=== PATIENT | female | born 1950 | race Caucasian/White ===

== ENCOUNTER 2016-12-09 05:54 | Day surgery (SDC) | payer MEDICARE ==
[~2016-12-09] VITALS: Ht 162.6 cm; Wt 86.8 kg
[2016-12-09] VITALS (13 sets, daily range): BP systolic 99–144; BP diastolic 6–76; PULSE 70–103; RESP 14–17; O2SAT 95–98
[~2016-12-09 05:54] MED LIST: CeFAZolin Inj 2 GM in IV Premix 1 EACH IV ONE; Dextrose 10% 250 ML IV SCH; Lactated Ringer's 1,000 ML IV ONE; PREC VG; Phenazopyridine 97.5 mg Tablet PO ONE; THYROID PO
[2016-12-09] MEDS ORDERED: Dexamethasone 4 mg/mL Inj ONE (05:55)
[2016-12-09] MEDS ORDERED: Propofol 10,000 mCg/mL 20 mL Inj ONE (05:55)
[2016-12-09] MEDS ORDERED: Phenylephrine/NS 100 mCg/mL 10 mL Syringe IVPUSH ONE (05:55)
[2016-12-09] MEDS ORDERED: fentaNYL-PF 50 mCg/mL 2 mL Inj ONE (05:55)
[2016-12-09] MEDS ORDERED: Ondansetron 2 mg/mL 2 mL Inj ONE (05:55)
[2016-12-09] MEDS ORDERED: Rocuronium 10 mg/mL 5 mL Inj ONE (05:55)
[2016-12-09] MEDS ORDERED: Morphine PF 1 mg/mL 10 mL Inj ONE (05:55)
[2016-12-09] MEDS ORDERED: Phenazopyridine 97.5 mg Tablet ONE (06:11)
[2016-12-09] MEDS ORDERED: CeFAZolin 2 Gm/50 mL D5W Duplex Bag IV ONE (06:12)
--- NOTE | 2016-12-09 07:25 | PCM.HPANE ---
Patient Data Date of Service: Dec 09, 2016 Surgeon Admitting Provider: Attending Provider:Anand East MD Primary Care Physician:Donald Jama MD Other Provider:Burton Encinas Anesthesia Reason for Visit Uterovaginal Prolapse,Rectocele,Stress Incontinenc Ht/WT & BMI Height (Feet): 5 Height (Inches): 4 Weight (Kilograms): 86.8 Body Mass Index 32.00 Allergies Coded Allergies: NSAIDS (Non-Steroidal Anti-Inflamma (Verified Allergy, Severe, Increase heart rate, 12/08/16) Sulfa (Sulfonamide Antibiotics) (Verified Allergy, Severe, Anaphylaxis, ) epinephrine (Verified Allergy, Severe, Panic attack, 12/08/16) Past Anesthesia History Anesthesia History: Positive for:: Anesthesia Reactions (GENERAL - HYPOTENSION , SPINAL - NO PAIN RELIEF), Denies:: Abnormal Airway, Difficult Intubation, Fam Anesthesia Reaction, Fam Malignant Hypertherm, Malignant Hyperthermia Diabetes History Hx Diabetes?: No MRSA MRSA: No Medications Hypertension Medication: No Home Meds Incl Beta Marco: No Reported Medications [Amour Thryoid] No Conflict [id number] Mg PO DAILY 12/08/16 Estrogens Conjugated (Premarin)1 Gm Vagcream0.625 Mg VG DAILY #1 TUBE Ref 0 12/08/16 History History of ENT Problems?: Yes HEENT History: Positive for:: Sinus Problem (chronic sinusitis) Denies:: Abnormal Airway Cataracts Difficult Intubation Dysphagia Glaucoma Hearing Problem Denture Type: None Teeth Condition: Within Normal Limits Hx of Heart Problems?: No Cardiovascular History: Denies:: Atrial Fibrillation Hypertension Irregular Heartbeat Valvular Heart Disease Hx of Respiratory Problem?: Yes (nothing chronic or currently present) Respiratory History: Positive for:: Hemoptysis (with pneumonia 40 yrs) Pneumonia (40 yrs ago) Denies:: Pulmonary Embolism Tuberculosis Use of C-PAP Machine Use of Inhalers / NEBS Hx Neurologic Problems?: Yes Neurological History: Positive for:: Dizziness (vertigo on occassion) Denies:: Alzheimer's Disease CVA Dementia Headaches Parkinson's Disease Seizures TIA Hx of GI Problems?: No Gastrointestinal History: Denies:: Gastroesphageal Reflux Heartburn Hx of Problems?: No Genitourinary History: Denies:: Urinary Tract Infection Female Hx: Denies:: Currently Problems with Breasts? Skin History: Denies:: History Skin Disorders? (scraches from blackberry's) Hx Musculoskeletal Problems?: Yes Musculoskeletal History: Positive for:: Back Injury (LOW BACK PAIN - ? BULGING DISCS X 2 YRS) Musculoskeletal Trauma (both arms fx) Denies:: Degenerative Joint Joint Replacement Osteoarthritis Rheumatoid Arthritis Systemic Lupus Hx of Psycho/Social Problems?: No Hx Surgeries?: Yes (KIM - 8 YRS AGO, BLADDER TACKED - 7YRS AGO,) Other History: Positive for:: Cancer (facial melinoma removed) Hospitalization Thyroid Disease ([place] Thyroid) History Blood Transfusions: Positive for:: Accept Blood Products? Denies:: Blood Transfusions Hx Diabetes: No Hx Alcohol Use: NoHx Substance Use: NoHave You Smoked inLast 12 mo: No Stop/Bang S-Snoring: Do You Snore Loudly: No T-Tired: feel tired, fatigued: No O-Obsered: Observed not breath: No P-Blood Pressure: treated: No B- Body Mass Index > 35 kg/m2: No A- Age over 50: Yes N- Neck Large Circumference: No G- Gender Male: No MARIA ISABEL Total Score: 1 MARIA ISABEL Risk Assessment: Low Risk, <3 Yes Risk Assessment Category Category 1A: Patient has history of documented sleep apnea, and HAS NOT received any narcotic, sedative or anesthesia administration during this stay. Category 1B: Patient has history of documented sleep apnea, and HAS received any narcotic , sedative or anesthesia administration during this stay Category 2: Patient has SUSPECTED Obstructive Sleep Apnea, and HAS received any narcotic , sedative or anesthesia administration during this stay. Category 3: Patient has SUSPECTED Obstructive Sleep Apnea and HAS NOT received narcotic, sedative or anesthesia administration during this stay. Category 4: Outpatient in Procedural Areas with known sleep apnea or who screen positive for High Risk via the STOP/BANG questionnaire. Exam Exam Vital Signs Vital Signs Date Time Temp Pulse Resp B/P Pulse Ox O2 Delivery O2 Flow Rate FiO2 12/09/16 06:20 36.7 76 16 144/76 95 Room Air General Appearance: Alert, Oriented X3, Cooperative, No Acute Distress HEENT/AIRWAY: MP 2, Neck Movement (FROM, tmd 3 fb), Mouth Opening (small, narrow) Lungs: Clear to Auscultation, Normal Air Movement Heart: Exam Unremarkable, Regular Rate/Rhythm, No Murmurs/Rubs/Gallops Meds/Labs/Diagnostics Admission Meds Current Medications Phenazopyridine HCl 2 tab 2 tab 01 ONCE PO Last administered on 12/09/16 07: 00; Start 12/09/16 at 01:00; Stop 12/09/16 at 01:01; Status DC Lactated Ringer's (Lr) 1,000 ml @ 10 mls/hr Q24H ONCE IV Last administered on 12/09/16 06:05; Start 12/08/16 at 07:31; Stop 12/09/16 at 07:30 Labs PLT 215 on 12/02/16, no e/o coagulopathy Plan Impression Patient chart reviewed, patient interviewed and anesthestic plan with risks, benefits, and alternatives discussed, and informed consent obtained. NPO per Anesth. Guidelines: Yes ASA Physical Status: ASA2 Mod Systemic Disease Anesthetic Plan: GA, Regional Block (intrathecal morphine for postop analgesia) Bene/Risks/Altern/Consents: Yes HP Complete Prior to Induction: Yes Los Cerna MD Dec 09, 2016 07:25
[2016-12-09] MEDS ORDERED: Lactated Ringer's 500 ML IV PRN (08:18)
[2016-12-09] MEDS ORDERED: EPHEDrine Sulfate 50 mg/mL Inj IM PRN (08:20)
[2016-12-09] MEDS ORDERED: MetoCLOpramide 5 mg/mL 2 mL Inj IVPUSH PRN ×2 (08:20→12:15)
[2016-12-09] MEDS ORDERED: Phenylephrine 10,000 mCg/mL Inj IVPUSH PRN (08:20)
[2016-12-09] MEDS ORDERED: hydrALAZINE 20 mg/mL Inj IVPUSH PRN (08:20)
[2016-12-09] MEDS ORDERED: Ondansetron 2 mg/mL 2 mL Inj IVPUSH PRN ×2 (08:20→12:15)
[2016-12-09] MEDS ORDERED: fentaNYL-PF 50 mCg/mL 2 mL Inj IVPUSH PRN (08:20)
[2016-12-09] MEDS ORDERED: HYDROmorphone 1 mg/mL Inj IVPUSH PRN (08:20)
[2016-12-09] MEDS ORDERED: Labetalol 5 mg/mL 20 mL Inj IV PRN (08:20)
[2016-12-09] MEDS ORDERED: EPHEDrine Sulfate 50 mg/mL Inj IVPUSH PRN (08:20)
[2016-12-09] MEDS ORDERED: Atropine 0.4 mg/mL Inj IVPUSH PRN (08:20)
[2016-12-09] MEDS ORDERED: Lidocaine 1%-Epi 1:100,000 20 mL Inj INJ ONE ×2 (08:43→10:10)
[2016-12-09] MEDS ORDERED: Gentamicin 40 mg/mL 2 mL Inj IRRIGATION ONE ×2 (08:43→10:11)
[2016-12-09] MEDS ORDERED: Sodium Chloride Bacteriostatic 30 mL Inj INJ ONE ×2 (08:43→10:11)
[2016-12-09] MEDS: Lactated Ringer's 1,000 ML IV SCH ×3 (11:18→17:32)
[2016-12-09] MEDS ORDERED: Estrogens Conjugated 30 Gm Vaginal Cream VAGINAL ONE (11:21)
[2016-12-09] MEDS ORDERED: oxyCODONE-Acetamin 5-325 mg Tablet PO PRN (12:15)
[2016-12-09] MEDS ORDERED: hydrOXYzine Inj 50 MG/1 mL SDV IM PRN (12:15)
[2016-12-09] MEDS: Acetaminophen IV 1,000 MG in IV Premix 1 EACH IV SCH ×3 (12:15→23:14)
--- NOTE | 2016-12-09 14:04 | PCM.ANEP1 ---
Post Anesthesia PACU Phase 1 Assessment Date of Service: Dec 09, 2016 Vital Signs Vital Signs Date Time Temp Pulse Resp B/P Pulse Ox O2 Delivery O2 Flow Rate FiO2 12/09/16 13:33 Supplement Oxygen 12/09/16 13:32 36.7 94 16 132/76 96 Nasal Cannula 2.00 12/09/16 13:00 95 16 124/59 95 Nasal Cannula 12/09/16 12:45 98 17 127/62 95 Nasal Cannula 12/09/16 12:30 103 15 121/6 96 Nasal Cannula 3 12/09/16 12:20 99 17 120/62 95 Nasal Cannula 3 12/09/16 12:05 82 15 115/58 96 Nasal Cannula 3 12/09/16 12:01 17 96 12/09/16 12:00 90 16 99/52 96 Nasal Cannula 3 12/09/16 11:55 83 14 108/58 96 Nasal Cannula 3 12/09/16 11:50 37.1 80 16 123/55 95 Nasal Cannula 3 12/09/16 06:20 36.7 76 16 144/76 95 Room Air Anesthetic Administered: GA Level of Alertness: Sleepy, easy to arouse CAMACHO's with Equal Strength: Yes Pain: Yes Pain Scale Score: 1 Nausea or Vomiting: Yes (improved with treatment) CV Function & Hydration Stable: Yes Airway Device: none Oxygen Delivery: Nasal Cannula Lungs: Clear to Auscultation, Normal Air Movement Dermatome Level: Full Sensation PACU Phase 2 Assessment Complications: No Follow up Care: N/A Patient Instructions Provided: N/A Los Cerna MD Dec 09, 2016 14:04
[2016-12-09] MEDS ORDERED: hydrOXYzine Inj 25 MG/1 mL SDV IM PRN (14:45)
--- NOTE | 2016-12-09 17:36 | NUR ---
Post Op Pt arrived to OSC unit, from PACU, via gurney, at 1310. A&O - groggy/sleepy but arousable and answering questions appropriately. CAMACHO - gen weakness/drift&fall within 10seconds. VSS - on 2L NC, CPOx with sats mid90s, stating nausea with movement on gurney from PACU to OSC, Najera patent, Bilateral bandaids/steristrips CDI, Peripad with half dollar size sanguineous drainage noted, Pt oriented to room, IV patent and infusing LR, stating achey but tolerable - instructed to call when starting to increase in pain - pt understanding, Pt watched orientation video. Care continues.
[2016-12-09 20:04] LABS: APPEARANCE,URINE HAZY (CLEAR,HAZY); COLOR,URINE ORANGE (YELLOW)
--- NOTE | 2016-12-10 00:07 | PCM.SURGOP ---
Surgical Operative Report Date of Service: Dec 09, 2016 Pre Operative Diagnosis 1. POPQ stage 2 apical uterine prolapse 2. POPQ stage 3 posterior vaginal prolapse 3. Recurrent Stress incontinence in female, found on urodynamics N39.3 (625.6): Previous rectus fascia sling 1996 Post Operative Diagnosis 1. POPQ Stage 2 Uterine prolapse 2. POPQ Stage 3 Rectocele and deficient rectovaginal fascia N81.6 (618.04): 3. Recurrent Stress incontinence in female, found on urodynamics N39.3 (625.6): Previous rectus fascia sling 1996 Procedure: 1. vaginal hysterectomy with bilateral salpingectomy, 2. posterior repair with Xenform biologic graft augmentation, 3. high uterosacral ligament vaginal vault suspension, and enterocele repair. 4, mid-urethral sling, TVT-Obturator and cystoscopy Surgeon and Assistant Kitchen Manager: Surgeon: Anand East MD Assistants: Tae Poe MD Indication for Procedure Her assessment to date includes: 1. Vaginal atrophy N95.2 (627.3): 2. Uterovaginal prolapse, incomplete N81.2 (618.2): 3. Rectocele N81.6 (618.04): 4. Recurrent Stress incontinence in female, found on urodynamics N39.3 (625.6): Previous rectus fascia sling 1996 The patient is a candidate for surgical prolapse management in the form of vaginal hysterectomy with Bilateral Salpingectomy, posterior repair with possible biologic graft augmentation, high uterosacral ligament vaginal vault suspension, and enterocele repair. For recurrent stress incontinence after a rectus fascia sling, I would implant a mid-urethral sling such as a TVT-O sling, which is positioned at the mid-urethra rather than at the bladder neck. The transobturator approach would bypass the likely scarring that is present in the retropubic space. She would like to keep the ovaries if they appeared normal; I did inform her there is a small risk in the general female population of ovarian cancer and that her ovaries are no longer producing estrogen. There is no strong fhx of ovarian/breast cancer. The patient signed the consent form. She agreed with the risks, benefits, and alternatives to surgery. The risks included but not limited to recurrence or persistence of prolapse, recurrence of persistence of incontinence, development of voiding dysfunction, development of urinary urgency, urgency incontinence, frequency, and need for intermittent self-catheterization or prolonged indwelling catheterization, injury to other organs including bladder, bowel, nerves or blood vessels. Need for blood transfusion, need for temporary colostomy or urinary stenting. Development of vaginal scarring, dyspareunia, defecatory dysfunction, recurring pain, hematoma formation, urinary tract infection, cellulitis, necrotizing fascitis, and medical risks including myocardial infarction, stroke or VTE. She also understood the FDA warnings associated with the use of vaginal mesh (dysparunia, vaginal erosion, erosion into bowel/bladder/urethra, requiring further surgery to correct these complications). The patient understood the risks and benefits and consented to surgery. Findings: see dictation Procedure Details SURGICAL TECHNIQUE: The patient was brought to the operating room. She was placed under general anesthesia. She was positioned with legs in Yellowfin stirrups. She was prepped and draped in the normal fashion for vaginal surgery. She was given a dose of IV ancef intraoperatively. She received 200 mg pyridium orally 30 min prior to surgery. 1. Vaginal Hysterectomy and bilateral salpingectomy: Lidocaine 0.5% with 1:200,000 of epinephrine was infiltrated pericervically. A pericervical incision was made with cautery. Anteriorly, the bladder was sharply dissected off the cervix. Posteriorly, the cul de sac was entered with sharp dissection. The bowels were packed with a mini-laparotomy sponge. The uterosacral ligaments were bilaterally clamped, divided and then tied in a transfixion fashion with 0- vicryl suture. Anteriorly, the Uterovesical peritoneum was entered with sharp dissection and the bladder was retracted upward with a right-angle retractor. The uterine vessels were then coagulated, and ligated using the Ligasure Impact System. The uterine body was delivered posteriorly. The utero-ovarian ligaments were clamped bilaterally, coagulated, ligated and then tied using 0-Vicryl suture. The tubes and ovaries appeared normal. After extensive counselling in the preop phase, she decided she would like to keep the ovaries if they looked normal. There was no strong family hx of ovarian/breast cancer. She however agreed to have a bilateral salpingectomy. The tubes were clamped at their base, coagulated with Ligasure and excised. The base was tied with 0- vicryl suture. The uterus/cervix, and tubes were sent to pathology. It was noted that the pedicles were hemostatic. 2-0 vicryl suture was used to achieve hemostasis along the cuff. 2. High uterosacral ligament vaginal vault suspension, cystoscopy and enterocele repair: Mini laparotomy sponges were packed to retract the bowel upwards. A pair of Allis clamps were placed along the intraperitoneal portions of the vagina at the 5 and 7 o'clock positions. Tension along these Allis clamps allowed for identification of the uterosacral ligaments bilaterally. A pair of 0 Vicryl sutures were passed around the uterosacral ligaments of the level of the ischial spine bilaterally, totalling 4. Cystoscopy was performed. Tension was applied along the vault sutures and brisk spillage of pyridium-stained urine was noted briskly effluxing from both ureteric orifices. Next four 3-0 Prolene sutures were placed transversely through the cul-de-sac peritoneum. This was performed while using a gloved finger in the rectum as to avoid penetrating the underlying rectal mucosa. Tying these sutures obliterated the POPQ Stage 3 enterocele. 3. Posterior colpoperinerorrhaphy with Xenform graft augmentation: Lidocaine 0.5% with 1/789819 epinephrine was infiltrated along the anterior vaginal wall mucosa. EUA revealed the presence of a POPQ stage 3 posterior vaginal prolapse corresponding to a rectocele. Lidocaine 0.5% with 1:50,000 of epinephrine was infiltrated along the perineum and posterior vaginal wall mucosa. A small midline vertical incision was made through the perineum. A mild wedge of perineum needed to be excised. A Midline vertical incision was made through the posterior vagina to the level of the apex a scalpel. The vaginal mucosa was dissected off the underlying rectovaginal tissues. It was noted the fascial tissues were thin and deficient especially at the area of the apex and was composed mainly of adipose tissue. The rectocele was plicated in two layers using 2-0 Vicryl suture in an interrupted fashion. A rectangular piece of Xenform graft was then sutured above the plicated tissue. The apical portion of this graft was secured to the apex near the enterocele repair. Laterally and distally the graft was secured using 2-0 Vicryl suture in interrupted fashion. A moderate amount of excess posterior vaginal mucosa was needed to be excised. The vagina was then reapproximated using 3-0 Vicryl suture in a running locked fashion. Perineum was reapproximated using 2-0 Vicryl suture in an interrupted fashion. The skin was reapproximated using 3-0 Vicryl suture in a subcuticular fashion. The vault suspension sutures were then passed through the planned apex of the vagina. Two were placed through the anterior apex and the other two, through the posterior apex. The vagina was then reapproximated using 3-0 Vicryl suture in a running-locked fashion. The high uterosacral ligament vaginal vault suspension sutures were tied and this elevated the apex of the vagina high up into the hollow of the sacrum. 4. TVT-Obturator sling and cystoscopy. Lidocaine 0.5% with 1/928336 epinephrine was infiltrated along the anterior vaginal wall mucosa at the level of the mid urethra. Midline vertical incision was made at that level, 2 periurethral tunnels were created with Metzenbaum scissors. Two stab incisions were created at the skin at the groin at a level 2 cm superior to the external urethral meatus and 2 cm lateral to the fold created between the vulva and thigh. De La Fuente catheter had already been inserted. A butterfly guide was inserted into the right periurethral tunnel, a curved helical needle was inserted on top of the guide and rotated out to the ipsilateral skin incision. The same procedure was performed on the contralateral side. Next the De La Fuente catheter was removed. There was no inadvertent penetration of the sling through the vagina, urethra or bladder. In addition, the ureteric orifices were noted bilaterally to be functional by the brisk spillage of pyridium-stained urine. The bladder appeared normal. The plastic sheaths of the sling were removed. The bladder was filled with sterile water (to a total bladder volume of 300 ml). Using the Crede maneuver, sling tension was appropriately adjusted. Also a large right angle clamp was allowed to easily pass behind the sling so that the sling was placed in a tension-free manner. The sling ends were cut at the level of the skin. The skin was reapproximated using Mastisol, Steri-Strips and band-aids. The vagina was reapproximated using 3-0 Vicryl suture in a running fashion The vagina was packed with Premarin-lubricated packing. An indwelling 16 F de la fuente catheter was connected to straight drainage. The patient's hips were periodically deflexed during the case. There were no complications. The EBL was 150 ml. All sponges and instruments were accounted for. She was taken to the recovery room in stable condition. Complications There were no periprocedural complications identified. Surgical Specimen Removed: Yes Specimen sent to Pathology: Yes Surgical Specimen description: uterus, cervix, tubes x 2 Anesthetic Plan: GA, Regional Block (intrathecal morphine for postop analgesia) Grafts, Implants: Grafts-See Implant Record, Implants-See Implant Record Output, Estimated Blood Loss: 150 (ml EBL) Blood Administration during kumar: No Drains: None Catheters: 3 Way Irrigation Post Operative Plan overnight observation in bed as outpatient as she requires a voiding trial in the am Attending Statement I performed the entire procedure myself copies to: Tae Poe MD; Anand East MD; Ayesha Jama MD, William Andre Z MD Dec 10, 2016 00:07
[2016-12-10 00:23] VITALS: BP 110/68; PULSE 65; RESP 16; O2SAT 96
[2016-12-10] MEDS: Lactated Ringer's 1,000 ML IV SCH ×3 (02:18→13:33)
--- NOTE | 2016-12-10 03:49 | NUR ---
ACTIVITY: Pt. resting in bed during initial assessment, denies pain. Stated she had nausea but it is resolved now. Drinking small amts of fluid, ice chips. Winnie care done. Moderate amount of bloody vaginal discharge in her pad. Najera catheter with cloudy and orange colored urine. Declined narcotics for pain. Given one dose of IV Tylenol for pain rated 5/10, effective. Pt. resting comfortable in bed. Educated regarding voiding trial in am. On going care.
[2016-12-10 04:34] VITALS: BP 110/66; PULSE 68; RESP 16; O2SAT 98
[2016-12-10] MEDS: Acetaminophen IV 1,000 MG in IV Premix 1 EACH IV SCH ×2 (04:53→13:39)
[2016-12-10 05:26] LABS: BASOPHILS % (AUTO) 0 % (0-3); EOSINOPHILS % (AUTO) 0.1 % (0-5); MONOCYTES % (AUTO) 11.5 % (4-12); Mean Corpuscular Hemoglobin 30.7 pg (27.0-35.0); Mean Corpuscular Volume 89.7 fL (81-100); NEUTROPHILS % (AUTO) 67.5 % (40-74); Platelet Count 166 bil/L (150-400)
[2016-12-10] MEDS ORDERED: [UNRECOGNIZED DRUG - OTHER] PO SCH (08:30)
[2016-12-10] MEDS ORDERED: Senna-Docusate 8.6-50 mg Tablet PO SCH (08:30)
[2016-12-10] MEDS: Heparin 5,000 Unit/mL Inj SUBQ SCH ×2 (08:39→16:03)
[2016-12-10] MEDS ORDERED: HYDROcodone-APAP 5-325 mg Tablet PO PRN (09:43)
--- NOTE | 2016-12-10 10:10 | NUR ---
Voiding trial/ activity tolerance Patient tolerated removal of vaginal packing and de la fuente catheter removal well. At 1020 patient felt urgency to void. Ambulated successfully to the bathroom and urinated 120ml. mixed urine and blood immediately. Patient became diaphoretic, pale, dizzy and was unable to get back into bed. BP at this time as documented 10 minutes apart was 1) 98/54 and second reading 2)114/66. Called PT for help to get patient back into bed. Patient states she feels weak with continued nausea. Dr. East called with update and report on voiding trial. Addendum: 12/10/16 at 1041 by SHELLEY STEIN RN Updated Dr. East on patient condition. Did not meet voiding trial criteria and will reinsert catheter per order. Will monitor BP hourly for orthostatic hypotension.
[2016-12-10 10:20] VITALS: BP 98/54
--- NOTE | 2016-12-10 10:20 | PCM.PNSURG ---
Subjective Date of Service: Dec 10, 2016 Date of Service: Dec 10, 2016 Visit Information: Reason for Visit Uterovaginal Prolapse,Rectocele,Stress Incontinenc Surgery/Surgery Date HYSTERCTOMY 12/09/16 Post-Op Day # 1 Subjective: AVSS doing well pain control adequate tolerating PO intake will ambulate OR explained Hct stable failed voiding trial (has episode of vasovagal on toilet, but vitals remain stable after recovery) switched to vicodin from Percocet Postop General: No Complaints Gastrointestinal: Good Appetite Objective Vital Sign- Last 8 Hours Date Time Temp Pulse Resp B/P Pulse Ox O2 Delivery O2 Flow Rate FiO2 12/10/16 04:34 36.6 68 16 110/66 98 Nasal Cannula 2.00 Intake and Output- Last 8 Hour 12/10/16 Cumulative From/Thru 07:00 12/08/16 16:36 - 12/10/16 06:10 Intake Total 1512 ml 3481 ml Output Total 650 ml 1530 ml Balance 862 ml 1951 ml Intake Oral 320 ml 320 ml IV Total 1192 ml 3161 ml Output Urine Total 400 ml 930 ml Emesis 100 ml 300 ml Estimated Blood Loss 150 ml 300 ml # Bowel Movements 0 0 General: Alert, Oriented X3, Cooperative Lungs: Clear to Auscultation Abdomen: Benign, Soft Catheters: Urethral 2 Way De La Fuente Result Diagram: 12/10/16 0501 Assessment & Plan Impression stable POD#1 Problems: Plan de la fuente teaching d/c home later today when stable f/u in 1 and 2 wk copies to: Anand East MD, William Andre Z MD Dec 10, 2016 10:20
[2016-12-10 10:25] VITALS: BP 114/66
--- NOTE | 2016-12-10 11:47 | PCM.DIGYN ---
Surgical Discharge Instruction Dates of Hospitalization Date of Hospital Admission 12/09/20 outpatient Providers Admitting Physician: Primary Care Physician: Mary Jama MD Attending Physician: Anand East MD Diagnosis at Time of Discharge Diagnosis at time of discharge 1. POPQ Stage 2 Uterine prolapse 2. POPQ Stage 3 Rectocele and deficient rectovaginal fascia N81.6 (618.04): 3. Recurrent Stress incontinence in female, found on urodynamics N39.3 (625.6): Previous rectus fascia sling 1996 Post-operative diagnosis 1. POPQ Stage 2 Uterine prolapse 2. POPQ Stage 3 Rectocele and deficient rectovaginal fascia N81.6 (618.04): 3. Recurrent Stress incontinence in female, found on urodynamics N39.3 (625.6): Previous rectus fascia sling 1996 Problems: Diet Discharge Diet: No restrictions Activity Discharge Activity-General: Restrict lifting to no greater than (10 lbs for 6 wk) Dressing and Incisional Care Dressing Care: Allow Steri Stripes to fall off Hygiene: May shower Additional Instructions Discharge Instructions hold the vaginal estrogen for 2 wk. Then restart after the 2 wk is up. Follow Up Plan Follow-up appointment: Weeks ([address] East; also see his MA in 1 wk for a voiding trial) Call your provider for: Fever, Chills, Shortness of breath, Vomitting, Drainage at incision, Heavy vaginal bleeding, Wound redness, Increasing pain Anand East MD Dec 10, 2016 11:47
--- NOTE | 2016-12-10 14:53 | NUR ---
Self care of De La Fuente/Ambulation/BP Patient managing de la fuente catheter emptying by self into a urinal/toilet. Ambulated in halls with no signs of orthostatic hypotension this afternoon. Tolerated well. BP and VSS while ambulating. Will attempt to ambulate patient one more time in 30 minutes, and then prepare for DC.
--- NOTE | 2016-12-10 16:09 | NUR ---
Social Work: Initial Assessment D: Per EMR review, pt is a 66 year old female admitted for uterovaginal prolapse, rectocele. Pt is [place] insurance with no LTC or VA benefits. PCP is Donald Jama MD. NOK is Davian Collins, spouse. AD on file. Readmit score not entered as patient is listed as a day surgery patient. VAN HELPER met with the patient and spouse at bedside. Sw role explained, contact info and idscharge planning checklist provided. Patient and spouse live in a two story home in [place]. Patient is I with ADLs and self-care at baseline. She uses no DME but has a cane if needed. NO HH or SNF history. Pt will be staying on the first floor of her home with spouse to assist as needed Pt states she is being discharged. She has no concerns. This morning she was orthostatic however per RN note pt "ambulated in halls with no signs of orthostatic hypotension this afternoon." VAN HELPER observed patient ambulating halls with RN again prior to d/c. Patient states that she feels much better and has no concerns about d/c. Patient's spouse to transport. A: Pt who is I at baseline. P: Anticipate pt to discharge home via POV and no further sw needs/ GELA Buchanan
--- NOTE | 2016-12-10 17:09 | NUR ---
Discharge Patient DC to home with spouse. All DC education given including catheter training- day/night, follow up plan, and medication education. Patient and spouse verbalize understanding of all. IV access DC'd intact with no s/s of infection. Prescriptions and medication education given upon DC.
--- NOTE | 2016-12-14 15:57 | PATH ---
SURGICAL PATHOLOGY Attending Physician:Anand East, CASE STATUS: Signed Out PATIENT NAME: NOELLE SOLIS PID: [id number] : 1950 DATE COLLECTED:12/09/2016 00:00 SPECIMEN: 1: Uterus +/- tubes/ovaries, except neoplastic, prolapse 2: Fallopian Tube, Biopsy CLINICAL HISTORY: UTERINE PROLAPSE 1). UTERUS WITH LEFT FALLOPIAN TUBE 2). RIGHT FALLOPIAN TUBE FINAL DIAGNOSIS: 1.UTERUS WITH LEFT FALLOPIAN TUBE, HYSTERECTOMY WITH SALPINGECTOMY: - WEAKLY PROLIFERATIVE/INACTIVE ENDOMETRIUM WITH NO EVIDENCE OF ATYPICAL HYPERPLASIA AND MALIGNANCY. - CERVIX, LEFT FALLOPIAN TUBE WITH NO EVIDENCE OF NEOPLASM. - LEIOMYOMATA (1.3 CM IN GREATEST DIMENSION, PER GROSS DESCRIPTION). 2.RIGHT FALLOPIAN TUBE, SALPINGECTOMY: - FALLOPIAN TUBE WITH NO EVIDENCE OF NEOPLASM. COMMENT: As part of routine production quality manager sections of part [address] Duron who agrees with the interpretation. [id number] GROSS DESCRIPTION: The specimens are received in formalin, labeled with the patient's name, and sublabeled as the following: (1) left fallopian tube, uterus; (2) right fallopian. (1) The consists of a uterus (106 g, 4.2 cm AP, 9.3 cm SI, 4.9 cm ML) and a detached fimbriated fallopian tube (length-4.6 cm, diameter-0.5 cm). The ovaries and second fallopian tube are absent. The cervix (2.5 cm AP, 3.5 cm ML) has a vaginal cuff (up to 3.2 cm in depth), transverse os and patent endocervical canal lined with multiple cystic cavities (0.1 cm - 0.7 cm) containing clear colorless gelatinous material. The endometrium (average thickness-0.1 cm) is torres smooth and flat. The myometrium (thickness-1.8cm) is torres-white with multiple solid firm white whorled well-circumscribed homogenous nodules (0.2 x 0.2 x 0.2 cm - 1.3 x 0.7 x 0.7 cm). The serosa is torres smooth and shiny. The fallopian tube has stephens-purple smooth shiny serosa and a torres unremarkable lumen. Section code: (1A-1B) anterior cervix, bisected and submitted SI; (1C-1D) posterior cervix, bisected and submitted SI; (1E, 1F) anterior endomyometrium; (1G, 1H) posterior endomyometrium; (1I) fallopian tube, serially sectioned, bilingual inside sales representative; (1J) fimbria, bivalved, entirely submitted. (2) The specimen consists of a fimbriated fallopian tube (length-2.2 cm, diameter-0.6 cm). The serosa is stephens-purple smooth and shiny with a paratubal cyst (0.8 x 0.7 x 0.7 cm) containing clear soto gelatinous material. The lumen is torres and unremarkable. Section code: (2A) fallopian tube, severely sectioned, bilingual inside sales representative; (2B) fimbria, bivalved, entirely submitted. 12/10/16 JM MICRO DESCRIPTION: See diagnosis. ICD-9 CODES: CPT CODES: 1: 35123 2: 24483 Electronically Signed Out Dima Tavera MD [facility] Pathology [facility] [address] [facility], [place] [address] Technical component performed at [facility], [address] [place] [address] [address], [address]
== END 2016-12-10 17:00 | disposition home or self-care (01) ==
LOC: SAS 05:54 → OSC 13:14 → UNDOADMOB 13:14 → SAS 12-10 17:00
PROVIDERS: ATTEND Obstetrics & Gynecology
DX: N81.2 Incomplete uterovaginal prolapse (principal); N81.6 Rectocele; N39.3 Stress incontinence (female) (male); N95.2 Postmenopausal atrophic vaginitis; E03.9 Hypothyroidism, unspecified
CPT/HCPCS: 36415; 51715; 57250; 57288; 58262; 81000; 85025; 86850; 87086; 88305; 88307; C1763; C1771; J0131; J0690; J1100; J1580; J1644; J1885; J2250; J2270; J2274; J2370; J2405; J2704; J2765; J3010; J7120